=== PATIENT | female | born 1965 | race Two or more races ===

== ENCOUNTER 2017-02-20 13:11 | Emergency (ER) | payer OTHER ==
[2017-02-20] MEDS: FAMOTIDINE 20 MG INJ IV (15:16)
[2017-02-20] MEDS: METHYLPREDNISOLONE 125 MG INJ IV (15:16)
[2017-02-20] MEDS: DIPHENHYDRAMINE 50 MG INJ IV (15:16)
[2017-02-20] MEDS: EPINEPHrine 1 MG INJ SC (15:16)
== END 2017-02-20 16:22 | disposition home or self-care (01) ==
LOC: FTE 13:11
DX: L50.0 Allergic urticaria (principal)
CPT/HCPCS: 96372; 96374; 96375; 99284-25